=== PATIENT | male | born 1970 | race American Indian/Alaskan Native ===

== ENCOUNTER 2019-08-06 10:51 | Emergency (ER) | payer SELFPAY ==
[2019-08-06 11:53] LABS: Basophils % (Auto) 0.3 % (0.0-1.8); Eosinophils % (Auto) 0.7 % (0.0-4.3); Hematocrit 41.9 % (35.5-45.6); Hemoglobin 13.8 gm/dl (11.8-15.2); Lymphocytes # (Auto) 0.7 K/mm3 (1.2-5.4); Lymphocytes % (Auto) 10.2 % (13.4-35.0); Mean Corpuscular HGB Conc 33 % (32-34); Mean Corpuscular Volume 87 fl (84-94); Monocytes # (Auto) 0.6 K/mm3 (0.0-0.8); Monocytes % (Auto) 8.5 % (0.0-7.3); Platelet Count 169 K/mm3 (140-440); Red Blood Count 4.83 M/mm3 (3.65-5.03); Red Cell Distribution Width 14.4 % (13.2-15.2)
[2019-08-06 12:01] LABS: Alanine Aminotransferase 59 units/L (7-56); Albumin 4.3 g/dL (3.9-5); BUN/Creatinine Ratio 14; Blood Urea Nitrogen 15 mg/dL (9-20); Calcium 9.3 mg/dL (8.4-10.2); Hemolysis Index 5
--- NOTE | 2019-08-06 13:13 | Emergency Department Report ---
<DEEWY ROSA - Last Filed: 08/06/19 17:03> ED Abdominal Pain HPI - General Chief Complaint: Abdominal Pain Stated Complaint: ABD PAIN Time Seen by Provider: 08/06/19 12:24 Source: patient Mode of arrival: Ambulatory Limitations: No Limitations - History of Present Illness Initial Comments: 49-year-old -[place] male patient presents with complaints of abdominal pain starting around 8:30 this morning. He states history of alcoholic pancreatitis and hepatitis, but denies any drinking. He states the pain started in periumbilical area and moved to the right side of his belly. He rates his pain as a 7/10 in severity and describes it as a stabbing type pain. He denies any nausea/vomiting, dysuria/hematuria/frequency, melena/hematochezia, or fever/chills/sweats. He admits to one episode of diarrhea last night. MD Complaint: abdominal pain -: Sudden Location: RUQ, RLQ Radiation: R flank Severity scale (0 -10): 7 Quality: stabbing Consistency: constant Improves With: nothing Worsens With: nothing Associated Symptoms: diarrhea. denies: nausea, vomiting, fever, chills, constipation, dysuria, hematemesis, hematochezia, melena, hematuria, syncope - Related Data Previous Rx's Medication Instructions Recorded Last Taken Type Dicyclomine [Bentyl] 20 mg PO QID PRN #14 tablet 08/06/19 Unknown Rx Famotidine [Pepcid] 40 mg PO QHS #20 tablet 08/06/19 Unknown Rx Sucralfate [Carafate] 1 gm PO ACHS 7 Days #21 tablet 08/06/19 Unknown Rx Allergies Allergy/AdvReac Type Severity Reaction Status Date / Time No Known Allergies Allergy Unverified 08/06/19 10:54 ED Review of Systems Comment: All other systems reviewed and negative Gastrointestinal: abdominal pain ED Past Medical Hx - Past Medical History Previous Medical History?: Yes Additional medical history: Hx pancreatitis - Surgical History Past Surgical History?: No - Social History Smoking Status: Never Smoker - Medications Home Medications: Home Medications Medication Instructions Recorded Confirmed Last Taken Type Dicyclomine [Bentyl] 20 mg PO QID PRN #14 tablet 08/06/19 Unknown Rx Famotidine [Pepcid] 40 mg PO QHS #20 tablet 08/06/19 Unknown Rx Sucralfate [Carafate] 1 gm PO ACHS 7 Days #21 tablet 08/06/19 Unknown Rx ED Physical Exam - General Limitations: No Limitations General appearance: alert, in no apparent distress - Head Head exam: Present: atraumatic, normocephalic - Eye Eye exam: Present: normal appearance. Absent: scleral icterus - Neck Neck exam: Present: normal inspection - Respiratory Respiratory exam: Present: normal lung sounds bilaterally. Absent: respiratory distress - Cardiovascular Cardiovascular Exam: Present: regular rate, normal rhythm, normal heart sounds - GI/Abdominal GI/Abdominal exam: Present: soft, tenderness (mild to moderate tenderness noted in right lower quadrant and right upper quadrant). Absent: distended, guarding, rebound, rigid, organomegaly, mass - Rectal Rectal exam: Present: deferred - Extremities Exam Extremities exam: Present: normal inspection - Back Exam Back exam: Present: CVA tenderness (R) - Neurological Exam Neurological exam: Present: alert, oriented X3 - Psychiatric Psychiatric exam: Present: normal affect, normal mood - Skin Skin exam: Present: warm, dry, intact, normal color. Absent: rash ED Medical Decision Making - Lab Data Result diagrams: 08/06/19 11:05 08/06/19 11:05 Lab Results 08/06/19 08/06/19 08/06/19 Range/Units 11:05 11:05 13:30 WBC 6.5 (4.5-11.0) K/mm3 RBC 4.83 (3.65-5.03) M/mm3 Hgb 13.8 (11.8-15.2) gm/dl Hct 41.9 (35.5-45.6) % MCV 87 (84-94) fl MCH 29 (28-32) pg MCHC 33 (32-34) % RDW 14.4 (13.2-15.2) % Plt Count 169 (140-440) K/mm3 Lymph % (Auto) 10.2 L (13.4-35.0) % [place] % (Auto) 8.5 H (0.0-7.3) % Eos % (Auto) 0.7 (0.0-4.3) % Baso % (Auto) 0.3 (0.0-1.8) % Lymph # 0.7 L (1.2-5.4) K/mm3 [place] # 0.6 (0.0-0.8) K/mm3 Eos # 0.0 (0.0-0.4) K/mm3 Baso # 0.0 (0.0-0.1) K/mm3 Seg Neutrophils % 80.3 H (40.0-70.0) % Seg Neutrophils # 5.2 (1.8-7.7) K/mm3 Sodium 134 L (137-145) mmol/L Potassium 3.9 (3.6-5.0) mmol/L Chloride 101.3 (98-107) mmol/L Carbon Dioxide 18 L (22-30) mmol/L Anion Gap 19 mmol/L BUN 15 (9-20) mg/dL Creatinine 1.1 (0.8-1.5) mg/dL Estimated GFR > 60 ml/min BUN/Creatinine Ratio 14 % Glucose 101 H (75-100) mg/dL Calcium 9.3 (8.4-10.2) mg/dL Total Bilirubin 0.60 (0.1-1.2) mg/dL AST 99 H (5-40) units/L ALT 59 H (7-56) units/L Alkaline Phosphatase 76 (35-129) units/L Total Protein 7.7 (6.3-8.2) g/dL Albumin 4.3 (3.9-5) g/dL Albumin/Globulin Ratio 1.3 % Lipase 34 (13-60) units/L Urine Color Yellow (Yellow) Urine Turbidity Clear (Clear) Urine pH 5.0 (5.0-7.0) Ur Specific [place] 1.018 (1.003-1.030) Urine Protein <15 mg/dl (Negative) mg/dL Urine Glucose (UA) Neg (Negative) mg/dL Urine Ketones Neg (Negative) mg/dL Urine Blood Neg (Negative) Urine Nitrite Neg (Negative) Urine Bilirubin Neg (Negative) Urine Urobilinogen < 2.0 (<2.0) mg/dL Ur Leukocyte Esterase Neg (Negative) Urine WBC (Auto) 5.0 (0.0-6.0) /HPF Urine RBC (Auto) 3.0 (0.0-6.0) /HPF Urine Mucus Few /HPF - Radiology Data Radiology results: report reviewed CT ABDOMEN AND PELVIS WITH CONTRAST INDICATION / CLINICAL INFORMATION: RLQ pain. TECHNIQUE: Axial CT images were obtained through the abdomen and pelvis after 100 mL Omnipaque [address] scans at this location are performed using CT dose reduction for ALARA by means of automated exposure control. COMPARISON: None available. FINDINGS: LOWER CHEST: No significant abnormality. LIVER: No significant abnormality. BILIARY SYSTEM: No significant abnormality. PANCREAS: No significant abnormality. SPLEEN: No significant abnormality. ADRENALS: No significant abnormality. KIDNEYS and URETERS: No significant abnormality. STOMACH / BOWEL: No significant abnormality. The appendix is normal. PERITONEUM: No free fluid. No free air. No fluid collection. LYMPH NODES: No significant adenopathy. VASCULAR STRUCTURES: No significant abnormality. URINARY BLADDER: No significant abnormality. REPRODUCTIVE ORGANS: No significant abnormality. ADDITIONAL FINDINGS: None. SKELETAL SYSTEM: No significant abnormality. IMPRESSION: 1. No acute process identified within the abdomen or pelvis to account for right lower quadrant pain. - Medical Decision Making 49-year-old male patient presents with complaints of right-sided abdominal pain starting this morning. She has history of pancreatitis however denies any alcohol intake. Vitals are WNL. WBCs and lipase are normal. No signs of infection noted on UA. CT abdomen is negative for acute findings. Since states pain is starting to worsen again in his right upper quadrant. Right upper quadrant ultrasound ordered. ED Disposition Clinical Impression: Elevated LFTs Abdominal pain Qualifiers: Abdominal location: generalized Qualified Code(s): R10.84 - Generalized abdominal pain Disposition: - TO HOME OR SELFCARE Condition: Stable Instructions: Abdominal Pain (ED) Additional Instructions: Please take medication as prescribed. Increase your water intake over the next several days. Avoid Tylenol and alcohol use. Please follow up with a GI doctor in the next 2-3 days. Please follow-up with the primary care doctor in the next 2-3 days. Return to the emergency room for any new or worsening symptoms. Prescriptions: Famotidine [Pepcid] 40 mg PO QHS #20 tablet Dicyclomine [Bentyl] 20 mg PO QID PRN #14 tablet PRN Reason: abdominal cramping Sucralfate [Carafate] 1 gm PO ACHS 7 Days #21 tablet Referrals: [facility] [Provider Group] - 2-3 Days [facility] [Provider Group] - 2-3 Days Print Language: GREEK <ANURAG,ROLDAN L. - Last Filed: 08/07/19 02:11> ED Review of Systems ROS: Stated complaint: ABD PAIN Other details as noted in HPI ED Course Vital Signs 08/06/19 08/06/19 08/06/19 10:54 13:07 15:22 Temperature 98.8 F Pulse Rate 83 70 69 Respiratory 18 19 14 Rate Blood Pressure 135/91 Blood Pressure 135/85 129/80 [Left] O2 Sat by Pulse 98 99 97 Oximetry 08/06/19 18:54 Temperature Pulse Rate 58 L Respiratory 18 Rate Blood Pressure Blood Pressure 135/71 [Left] O2 Sat by Pulse 97 Oximetry ED Medical Decision Making - Lab Data Result diagrams: 08/06/19 11:05 08/06/19 11:05 - Radiology Data Radiology results: report reviewed ULTRASOUND ABDOMEN, COMPLETE INDICATION: RUQ pain. COMPARISON: CT abdomen and pelvis on 08/06/2019. FINDINGS: Pancreas: No significant abnormality. Abdominal Aorta: No significant abnormality. IVC: No significant abnormality. Liver: No significant abnormality. Normal hepatopedal blood flow in the main portal vein. Gallbladder: No significant abnormality. Bile ducts: No significant abnormality. Common bile duct measures 4 mm. Right kidney: 10.9 cm in length. No significant abnormality. Left kidney: 10.5 cm in length. No significant abnormality. Spleen: No significant abnormality. Free fluid: None. Additional Findings: None. IMPRESSION: 1. No sonographic abnormality of the abdomen. Signer Name: Topher Aiken MD Signed: 08/06/2019 6:41 PM Workstation Name: [id number] Transcribed By: MELISSA Dictated By: Topher Aiken MD Electronically Authenticated By: Topher Aiken MD Signed Date/Time: 08/06/191840 DD/ 39 TD/TT: - Medical Decision Making Signed out by Dewey Rosa PA-C pending right upper quadrant ultrasound results Right upper quadrant ultrasound shows 1. No sonographic abnormality of the abdomen. Vitals are stable Labs are stable, mild elevation of LFTs. Patient is pain-free currently pt given perception for Bentyl, Pepcid, carafate advised pt to Please take medication as prescribed. Increase your water intake over the next several days. Avoid Tylenol and alcohol use. Please follow up with a GI doctor in the next 2-3 days. Please follow-up with the primary care doctor in the next 2-3 days. Return to the emergency room for any new or worsening symptoms. Critical care attestation.: If time is entered above; I have spent that time in minutes in the direct care of this critically ill patient, excluding procedure time. ED Disposition Is pt being admited?: No Does the pt Need Aspirin: No Time of Disposition: 18:59
[2019-08-06] MEDS ORDERED: SODIUM CHLORIDE 0.9% 1000 ML 1,000 ML IV ONE (13:19)
[2019-08-06] MEDS ORDERED: KETOROLAC 30 MG/1 ML INJ IV ONE (13:26)
[2019-08-06 14:51] LABS: Bilirubin,Urine NEG (Negative); Blood,Urine NEG (Negative); Color,Urine Yellow (Yellow); Mucus,Urine FEW /HPF; Protein,Urine <15 mg/dL mg/dL (Negative); Urobilinogen,Urine < 2.0 mg/dL (<2.0)
--- NOTE | 2019-08-06 16:55 | Cat Scan Report ---
CT ABDOMEN AND PELVIS WITH CONTRAST INDICATION / CLINICAL INFORMATION: RLQ pain. TECHNIQUE: Axial CT images were obtained through the abdomen and pelvis after 100 mL Omnipaque [address] scans at this location are performed using CT dose reduction for ALARA by means of automated exposure control. COMPARISON: None available. FINDINGS: LOWER CHEST: No significant abnormality. LIVER: No significant abnormality. BILIARY SYSTEM: No significant abnormality. PANCREAS: No significant abnormality. SPLEEN: No significant abnormality. ADRENALS: No significant abnormality. KIDNEYS and URETERS: No significant abnormality. STOMACH / BOWEL: No significant abnormality. The appendix is normal. PERITONEUM: No free fluid. No free air. No fluid collection. LYMPH NODES: No significant adenopathy. VASCULAR STRUCTURES: No significant abnormality. URINARY BLADDER: No significant abnormality. REPRODUCTIVE ORGANS: No significant abnormality. ADDITIONAL FINDINGS: None. SKELETAL SYSTEM: No significant abnormality. IMPRESSION: 1. No acute process identified within the abdomen or pelvis to account for right lower quadrant pain. Signer Name: Hina Mendieta MD Signed: 08/06/2019 4:51 PM Workstation Name: [id number]
[2019-08-06] MEDS ORDERED: DICYCLOMINE 20 MG/2 ML INJ IM ONE (17:51)
--- NOTE | 2019-08-06 18:45 | Ultrasound Report ---
ULTRASOUND ABDOMEN, COMPLETE INDICATION: RUQ pain. COMPARISON: CT abdomen and pelvis on 08/06/2019. FINDINGS: Pancreas: No significant abnormality. Abdominal Aorta: No significant abnormality. IVC: No significant abnormality. Liver: No significant abnormality. Normal hepatopedal blood flow in the main portal vein. Gallbladder: No significant abnormality. Bile ducts: No significant abnormality. Common bile duct measures 4 mm. Right kidney: 10.9 cm in length. No significant abnormality. Left kidney: 10.5 cm in length. No significant abnormality. Spleen: No significant abnormality. Free fluid: None. Additional Findings: None. IMPRESSION: 1. No sonographic abnormality of the abdomen. Signer Name: Topher Aiken MD Signed: 08/06/2019 6:41 PM Workstation Name: [id number]
[2019-08-06 18:55] VITALS: BP 135/71
== END 2019-08-06 19:13 | disposition home or self-care (01) ==
LOC: ED 10:51
DX: R10.11 Right upper quadrant pain (principal); R10.31 Right lower quadrant pain; R94.5 Abnormal results of liver function studies; Z98.890 Other specified postprocedural states
CPT/HCPCS: 36415; 74177; 76705; 80053; 81001; 83690; 85025; 96361; 96372; 96374; 99284; J0500; J1885; J7030; Q9967